=== PATIENT | male | born 1950 ===

== ENCOUNTER → 2022-09-22 08:12 | Outpatient (CLI) | payer SELFPAY ==
--- NOTE | ~2022-09-22 | XR_ITS ---
XR chest 2V 09/22/2022 09:20 Indication: Occupational exposure. Procedure: 2 view chest Comparison: No prior studies for comparison. Findings: There is pleural-based nodular asymmetry in the lower thorax posteriorly on the lateral view. Heart s ize is normal. There is pleural calcifications and thickening on the right. There is a nodular asymme try in the left mid thorax. There is bibasilar atelectasis/scarring. Impression: 1: Bilateral nodular asymmetries. Correlation with CT chest with contrast recommended. 2: Right lower lateral pleural thickening with calcification which may be related to prior asbestos e xposure or infection. 3: Bilateral lower lobe atelectasis/scarring. Reviewed, dictated and finalized at location B. ENGINEERING TECHNICIAN Impression: 1: Bilateral nodular asymmetries. Correlation with CT chest with contrast recom mended. 2: Right lower lateral pleural thickening with calcification which may be relat ed to prior asbestos exposure or infection. 3: Bilateral lower lobe atelectasis/scarring.
== END ==
DX: T75.89XA Other specified effects of external causes, initial encounter (principal); R91.8 Other nonspecific abnormal finding of lung field
CPT/HCPCS: 71046